=== PATIENT | male | born 1945 | race Caucasian/White ===

== ENCOUNTER 2016-11-02 17:39 | Inpatient (IN) | payer MEDICARE, OTHER ==
--- NOTE | ~2016-11-02 | DS ---
Discharge Summary [facility] [address] [place]. [address] NAME: NORAH LIAO : 45 STATUS : DIS IN PAT#: [id number] AGE: 71 ADM/REG DATE : 11/02/16 MR#: [id number] REPORT SERV DATE: 11/06/16 DICTATED BY: ROYCE LORENZO DATE: 11/05/16 REPORT STATUS : Draft TRANSCRIBED BY: MODL DATE: 11/05/16 ADMISSION DATE: 11/02/2016 DISCHARGE DATE: 11/05/2016 FINAL DIAGNOSES: 1. Acute on chronic respiratory failure. 2. Left lower lobe pneumonia. 3. Chronic obstructive pulmonary disease exacerbation. 4. Hypertension. 5. Prostate cancer. DIAGNOSTIC EXAM: Chest x-ray showing COPD, new infiltrate in the left lung base that is suspicious for pneumonia. HOSPITAL COURSE: Please refer to the H and P done by Dr. Espinoza dated on 11/02/2016. Briefly, this is a 71-year-old male, who comes in for shortness of breath. The patient has a history of COPD and uses 2 L of oxygen only at bedtime. The patient mowed the grass and then afterwards started having chills, shake, shortness of breath and tightness in the chest. The patient went to the emergency room the next day and an x-ray was done, which shows a left lower lobe pneumonia. The patient also came in with a white count of 26. The patient needed oxygen as he was hypoxic on room air, and on discharge, he was saturating at 92% on room air. The patient was started on antibiotics. Sputum cultures were done, and it turned out to be Pseudomonas. Interestingly enough, the patient actually improved without Pseudomonas treatment with improvement of clinical symptoms, and white count coming down from 26 to 8. Nevertheless, we will be discharging the patient on Levaquin which is sensitive to it. The patient expresses wishes to go home. He said that he feels much better and almost back to his baseline so, we will be discharging him with the above diagnosis, and he is going to continue his oxygen at night and inhalers at home. He will be on the following medications; aspirin 81 mg a day, Lipitor 40 mg at bedtime, Lopid 600 mg a day, lisinopril 10 mg a day, Claritin 10 mg at bedtime, Prilosec 20 mg a day, Combivent inhaled 4 times a day as needed, Symbicort 2 puffs twice a day, and he will get a prescription for Levaquin 750 mg p.o. daily for five more days. The patient will follow up with his PCP, Dr. Clinton Duenas in a week's time. This has been explained to the patient, and he agreed and understood the plan. CANDIDA/CONSUELO Royce Lorenzo M.D. / [id number] Discharge Summary [address] [address] NAME: NORAH LIAO : 45 STATUS : DIS IN PAT#: [id number] AGE: 71 ADM/REG DATE : 11/02/16 MR#: [id number] REPORT SERV DATE: 11/06/16 DICTATED BY: ROYCE LORENZO. DATE: 11/05/16 REPORT STATUS : Draft TRANSCRIBED BY: CONSUELO DATE: 11/05/16 CC: Chapin Burrell M.D.
--- NOTE | ~2016-11-02 | HP ---
History And Physical [facility] [id number] [place]. [address] NAME: NORAH LIAO : 45 STATUS : ADM IN PAT#: [id number] AGE: 71 ADM/REG DATE : 11/02/16 MR#: [id number] REPORT SERV DATE: 11/03/16 DICTATED BY: ROYCE ESPINOZA DATE: 11/02/16 REPORT STATUS : Draft TRANSCRIBED BY: MODL DATE: 11/02/16 DATE OF ADMISSION: 11/02/2016 IDENTIFYING DATA: A 71-year-old white male whose PCP is Dr. Clinton Duenas, urologist Dr. Peña. CHIEF COMPLAINT: Shortness of breath and chest tightness. HISTORY OF PRESENT ILLNESS: This history of present illness is obtained by talking with the patient as well as with his grandson and reviewing [facility] and Somewhere, reviewing the current ER chart. The patient has known COPD. He wears oxygen 2 L nasal cannula at bedtime. Yesterday, he mowed the grass of a family member about 2 acres worth, then in the evening had chills and shakes and had increased shortness of breath and tightness in his chest with worsening cough and new sputum that was white. No fever. He states he did get his flu vaccine last fall and also states he is up-to-date on his pneumonia vaccination. He came to the emergency room where he was noted to have a leukocytosis and left lower lobe infiltrate and hypoxia. We were asked to admit him to the hospital. REVIEW OF SYSTEMS: On review of systems, he has some left-sided chest pain that is just sore to touch today. He has chronic nocturia two times per night. He denies sore throat, abdominal pain, nausea, vomiting, diarrhea, dysuria, urinary hesitancy, peripheral edema, rash, headaches, tick bites. He states he has been eating well up until yesterday. He states when he was hospitalized here with a COPD exacerbation in June of this year, he lost about 12 pounds during that illness. He thinks he is gaining that back now. ALLERGIES: ON REVIEW OF SYSTEMS, NO KNOWN DRUG ALLERGIES. PAST MEDICAL HISTORY: He denies any history of diabetes, asthma, myocardial infarction, congestive heart failure, stroke, seizure, biliary tract disease, liver disease, renal disease, thyroid disease. He has a known history of COPD. He has hypertension. He has prostate cancer diagnosed in 2013, just on observation therapy. He has history of hyperlipidemia. He states he had a gastric ulcer at age 17, and he has had some skin cancers. HOME MEDICATIONS: Aspirin 81 mg daily, Lipitor 40 mg at bedtime, Symbicort 160/4.5 two puffs twice a day, Lopid 600 mg daily, Combivent Respimat a puff q.i.d., lisinopril 10 mg daily, Claritin 10 mg daily, and omeprazole 20 mg daily. SURGICAL HISTORY: Prostate biopsy and cataract removal. SOCIAL HISTORY: He used to smoke three to four packs of cigarettes per day but he quit 15 years ago. He states he drinks very rarely and never any substantial amount in his History And Physical [address] [address] NAME: NORAH LIAO : 45 STATUS : ADM IN [facility]#: [id number] AGE: 71 ADM/REG DATE : 11/02/16 MR#: [id number] REPORT SERV DATE: 11/03/16 DICTATED BY: ROYCE ESPINOZA DATE: 11/02/16 REPORT STATUS : Draft TRANSCRIBED BY: CONSUELO DATE: 11/02/16 lifetime. He works with stone, is still active. He walks without assistive device. FAMILY HISTORY: Mom had heart disease and skin cancer. Dad had COPD. Siblings one sister with heart disease. Another sister had cirrhosis. DIAGNOSTIC DATA: EKG done today at 1519 hours shows sinus tachycardia with poor R-wave progression, otherwise, unremarkable and looks like his EKG of 07/25/2016 per my interpretation. Chest x-ray, as a PA and lateral today reveals hyperexpanded lung hardy, flat diaphragm, infiltrate in the left lung base. No other acute abnormalities per my exam. Arterial blood gas done on 28% oxygen, pH 7.40, pCO2 of 40, pO2 of 73, bicarbonate 23.9, sodium 139, potassium 3.8, chloride 103, CO2 is 32, BUN 15, creatinine 0.99, glucose 123, calcium 9.9, magnesium 2.2. Troponin less than 0.02. White count is 26.6, hemoglobin 14.2, platelets 293,000, protime 14.9, INR 1.2, PTT is 37.1. PHYSICAL EXAMINATION: VITAL SIGNS: Temp is 98, pulse 125, respirations 26, blood pressure 120/71, O2 saturation 96% on 2 L. GENERAL: A well-developed male, who appears mildly short of breath, but in no acute distress otherwise. HEENT: Head is atraumatic. Pupils are equal, round, and reactive to light. Extraocular motions are intact. No scleral icterus noted. Ear canals with some wax but otherwise unremarkable. Normal hearing. He has what looks like some actinic keratosis on his external ears. Nose noninflamed externally. Septum midline. Nares patent. Mouth, moist. Good gag. No redness of the throat or gums. He has upper and lower dentures. NECK: Supple. No lymph node or thyroid enlargement. The carotids have good pulses. No bruits. LUNGS: Noted to have very distant breath sounds. Crackles in the left base, mildly increased respiratory effort. HEART: Tachycardic and regular without murmur, gallop, click, or rub. ABDOMEN: Bowel sounds positive. Soft, flat, nondistended, nontender. No masses. No organomegaly. EXTREMITIES: No cyanosis, no clubbing, no edema. No actively inflamed skin or joints. He has thickened dry skin on his palms. NEUROLOGICAL: Alert, oriented, cooperative with grossly normal motor and sensory and cranial nerves 2 through 12. No Babinski. No clonus noted. ASSESSMENT: 1. Community-acquired pneumonia left lower lobe. 2. Acute exacerbation of chronic obstructive pulmonary disease in a gentleman who uses nocturnal oxygen. 3. Leukocytosis related to community-acquired pneumonia left lower lobe. 4. Acute hypoxic respiratory failure. 5. Sepsis criteria. 6. Previous gastric ulcer years ago. 7. Prostate cancer on observation therapy since 2014. History And Physical [address] [address] NAME: NORAH LIAO : 45 STATUS : ADM IN [facility]#: [id number] AGE: 71 ADM/REG DATE : 11/02/16 MR#: [id number] REPORT SERV DATE: 11/03/16 DICTATED BY: ROYCE ESPINOZA DATE: 11/02/16 REPORT STATUS : Draft TRANSCRIBED BY: MODL DATE: 11/02/16 PLAN: 1. Admit to the hospital. 2. Blood cultures. 3. Procalcitonin and urine antigens will be checked. 4. Antibiotics have already been started in the emergency room. We will continue those. 5. Supplement oxygen and continue nebulizers. 6. I do not think he needs steroids yet parenterally. 7. We will follow up his white count. 8. We will follow up his troponins. The grandson updated at bedside at this time. DENIZ/CONSUELO Royce Espinoza M.D. / [id number] CC: Chapin Stewart M.D.
[2016-11-02 16:01] LABS: BASOPHILS 0.1 %; BASOPHILS ABSOLUTE 0.03 10/3/uL (0.0-0.16); EOSINOPHILS 0.2 %; EOSINOPHILS ABSOLUTE 0.05 10/3/uL (0.0-0.53); HEMOGLOBIN 14.2 g/dL (13.6-17.8); IMMATURE GRANULOCYTES 0.3 %; IMMATURE GRANULOCYTES ABSOLUTE 0.07 10/3/uL (0.0-0.11); LYMPHOCYTES 4.9 %; MEAN CORPUS HGB CONC 33.1 g/dL (32.0-36.0); MEAN CORPUSCULAR HEMOGLOB 28.5 pg (26.0-34.0); MEAN CORPUSCULAR VOLUME 86.1 fL (80-100); MEAN PLATELET VOLUME 10.4 fL (9.2-13.0); MONOCYTES 6.2 %; MONOCYTES ABSOLUTE 1.64 10/3/uL (0.21-1.20); NEUTROPHILS 88.3 %; NEUTROPHILS ABSOLUTE 23.53 10/3/uL (2.02-8.40)
[2016-11-02 16:02] LABS: RED CELL COUNT 4.98 10/6/uL (4.7-6.1); WHITE BLOOD CELLS 26.6 10/3/uL (4.5-10.5)
[2016-11-02 16:03] LABS: HEMATOCRIT 42.9 % (40.0-51.0); PLATELET COUNT 293 10/3/uL (150-400)
[2016-11-02 16:07] LABS: MANUAL DIFF NO %
[2016-11-02 16:14] LABS: INTERNATIONAL NORMAL RATI 1.2 UNITS (-); PARTIAL THROMBO TIME 37.1 SEC (22.5-37.2); PROTIME (NOT ORD) 14.9 SEC (12.0-14.5)
[2016-11-02 16:20] LABS: BAND NEUTROPHILS 9 %; ER DIFF TAT 0 Hrs 24 Mins; LYMPHOCYTES 4 %; LYMPHOCYTES ABSOLUTE (CALC) 1.06 10/3/uL (0.67-4.30); MONOCYTES 5 %; MONOCYTES ABSOLUTE (CALC) 1.33 10/3/uL (0.21-1.20); NEUTROPHILS ABSOLUTE (CALC) 24.21 10/3/uL (2.02-8.40); PLATELET ESTIMATE ADQ (ADEQUATE); RBC MORPHOLOGY NORM (NORMAL); SEGMENTED NEUTROPHIL (0) 82 %; TOTAL NUCLEATED CELLS 100
[2016-11-02 16:23] LABS: BUN (BLOOD UREA NITROGEN) 15 MG/DL (6-23); CALCIUM, SERUM 9.9 MG/DL (8.5-10.4); CHEST PAIN PROFILE TAT 0 Hrs 27 Mins; CHLORIDE, SERUM 103 MMOL/L (96-112); CO2 (CARBON DIOXIDE) 32 MMOL/L (24-34); CREATININE 0.99 MG/DL (0.70-1.30); GFR AFRICAN AMERICAN 88 ML/MIN (>=60); GFR NON AFRICAN AMERICAN 76 ML/MIN (>=60); GLUCOSE, SERUM 123 MG/DL (60-99); POTASSIUM, SERUM 3.8 MMOL/L (3.5-5.3); SODIUM, SERUM 139 MMOL/L (135-148); TROPONIN I <0.02 NG/ML (<0.05)
[2016-11-02 16:59] LABS: ALLENS TEST Pos; BE (BASE EXCESS) -0.8 MEQ/L (0 +/- 2.5); CARBOXYHEMOGLOBIN 1.3 % (0-3); DEVICE NC; HCO3 (ACTUAL BICARBONATE) 23.9 MEQ/L (23-27); HEMOBLOGIN CONTENT 13.9 G/DL (14-18); INSTRUMENT SERIAL # 8087; METHEMOGLOBIN 0.3 % (0-3); O2 CONTENT 18.3 VOL% (18-24); OPERATOR ID 32214; PCO2 (CO2 TENSION) 40 MMHG (35-45); PO2 (O2 TENSION) 73 MMHG (79-93); SAMPLE Arterial
[~2016-11-02 17:39] MED LIST: ALEVE220 MG PO; ASAB PO; CEFT2 PO; CLARIT10 PO; COMBIVENT RESPIM4 GM INH; LIPITOR40 PO; LOPID6 PO; P20 PO; PRILO PO; PRIN10 PO; PROAIR HFA INH; SPIRIVA RESPIMAT INH; SYMBICORT 160/41 INH INH; SYMBICORT 80/4.1 INH INH; ZOCOR10 PO
[2016-11-02 21:34] LABS: DIRECT BILIRUBIN 0.1 MG/DL (0.0-0.4); INDIRECT BILIRUBIN(NOT ORDER) 0.4 MG/DL (0.1-0.9); SGOT(AST) 20 U/L (5-40); SGPT(ALT) 26 U/L (5-65); TOTAL BILIRUBIN 0.5 MG/DL (0-1.2); TOTAL PROTEIN 8.2 G/DL (6.0-8.5)
[2016-11-02 21:35] LABS: ALKALINE PHOSPHATASE 120 U/L (45-117)
[2016-11-02 23:49] LABS: BUN (BLOOD UREA NITROGEN) 14 MG/DL (6-23); CALCIUM, SERUM 9.3 MG/DL (8.5-10.4); CHLORIDE, SERUM 102 MMOL/L (96-112); CO2 (CARBON DIOXIDE) 29 MMOL/L (24-34); CREATININE 0.91 MG/DL (0.70-1.30); GFR AFRICAN AMERICAN 98 ML/MIN (>=60); GFR NON AFRICAN AMERICAN 84 ML/MIN (>=60); GLUCOSE, SERUM 116 MG/DL (60-99); POTASSIUM, SERUM 4.2 MMOL/L (3.5-5.3); SODIUM, SERUM 142 MMOL/L (135-148); TROPONIN I <0.02 NG/ML (<0.05)
[2016-11-02 23:52] LABS: ULTRASENSITIVE TSH 0.518 MCIU/ML (0.358-3.740)
[2016-11-03 00:25] LABS: PROCALCITONIN 0.31 ng/mL (<0.5)
[2016-11-03 06:08] LABS: BASOPHILS 0.2 %; BASOPHILS ABSOLUTE 0.03 10/3/uL (0.0-0.16); EOSINOPHILS 0.5 %; EOSINOPHILS ABSOLUTE 0.09 10/3/uL (0.0-0.53); HEMATOCRIT 39.7 % (40.0-51.0); HEMOGLOBIN 12.8 g/dL (13.6-17.8); IMMATURE GRANULOCYTES 0.3 %; IMMATURE GRANULOCYTES ABSOLUTE 0.06 10/3/uL (0.0-0.11); LYMPHOCYTES 7.1 %; LYMPHOCYTES ABSOLUTE 1.35 10/3/uL (0.67-4.30); MEAN CORPUS HGB CONC 32.2 g/dL (32.0-36.0); MEAN CORPUSCULAR HEMOGLOB 28.1 pg (26.0-34.0); MEAN CORPUSCULAR VOLUME 87.3 fL (80-100); MEAN PLATELET VOLUME 10.4 fL (9.2-13.0); MONOCYTES 7.3 %; NEUTROPHILS 84.6 %; NEUTROPHILS ABSOLUTE 16.17 10/3/uL (2.02-8.40); PLATELET COUNT 282 10/3/uL (150-400); RBC DISTRIBUTION WIDTH 12.9 % (12.0-16.0); RED CELL COUNT 4.55 10/6/uL (4.7-6.1); WHITE BLOOD CELLS 19.1 10/3/uL (4.5-10.5)
[2016-11-03 06:11] LABS: MANUAL DIFF NO %
[2016-11-03 06:19] LABS: BUN (BLOOD UREA NITROGEN) 14 MG/DL (6-23); CALCIUM, SERUM 9.1 MG/DL (8.5-10.4); CHLORIDE, SERUM 104 MMOL/L (96-112); CO2 (CARBON DIOXIDE) 27 MMOL/L (24-34); CREATININE 0.84 MG/DL (0.70-1.30); GFR AFRICAN AMERICAN 102 ML/MIN (>=60); GFR NON AFRICAN AMERICAN 88 ML/MIN (>=60); GLUCOSE, SERUM 94 MG/DL (60-99); POTASSIUM, SERUM 4.2 MMOL/L (3.5-5.3); SODIUM, SERUM 141 MMOL/L (135-148)
[2016-11-04 05:31] LABS: BASOPHILS 0.2 %; BASOPHILS ABSOLUTE 0.02 10/3/uL (0.0-0.16); EOSINOPHILS 1.7 %; EOSINOPHILS ABSOLUTE 0.21 10/3/uL (0.0-0.53); HEMATOCRIT 40.1 % (40.0-51.0); HEMOGLOBIN 12.9 g/dL (13.6-17.8); IMMATURE GRANULOCYTES 0.3 %; IMMATURE GRANULOCYTES ABSOLUTE 0.04 10/3/uL (0.0-0.11); LYMPHOCYTES 8.6 %; LYMPHOCYTES ABSOLUTE 1.09 10/3/uL (0.67-4.30); MEAN CORPUS HGB CONC 32.2 g/dL (32.0-36.0); MEAN CORPUSCULAR HEMOGLOB 27.8 pg (26.0-34.0); MEAN CORPUSCULAR VOLUME 86.4 fL (80-100); MEAN PLATELET VOLUME 10.8 fL (9.2-13.0); MONOCYTES ABSOLUTE 1.14 10/3/uL (0.21-1.20); NEUTROPHILS 80.2 %; NEUTROPHILS ABSOLUTE 10.19 10/3/uL (2.02-8.40); PLATELET COUNT 291 10/3/uL (150-400); RBC DISTRIBUTION WIDTH 13.2 % (12.0-16.0); RED CELL COUNT 4.64 10/6/uL (4.7-6.1); WHITE BLOOD CELLS 12.7 10/3/uL (4.5-10.5)
[2016-11-04 05:32] LABS: MANUAL DIFF NO %
[2016-11-05 05:45] LABS: HEMATOCRIT 41.5 % (40.0-51.0); HEMOGLOBIN 13.5 g/dL (13.6-17.8); MEAN CORPUS HGB CONC 32.5 g/dL (32.0-36.0); MEAN CORPUSCULAR HEMOGLOB 28.5 pg (26.0-34.0); MEAN CORPUSCULAR VOLUME 87.7 fL (80-100); MEAN PLATELET VOLUME 11.3 fL (9.2-13.0); PLATELET COUNT 246 10/3/uL (150-400); RBC DISTRIBUTION WIDTH 13.2 % (12.0-16.0); RED CELL COUNT 4.73 10/6/uL (4.7-6.1); WHITE BLOOD CELLS 8.3 10/3/uL (4.5-10.5)
[2016-11-05 06:01] LABS: MANUAL DIFF YES %
[2016-11-05 06:46] LABS: BAND NEUTROPHILS 2 %; EOSINOPHILS 2 %; EOSINOPHILS ABSOLUTE (CALC) 0.17 10/3/uL (0.0-0.53); LYMPHOCYTES 15 %; LYMPHOCYTES ABSOLUTE (CALC) 1.25 10/3/uL (0.67-4.30); MONOCYTES 10 %; MONOCYTES ABSOLUTE (CALC) 0.83 10/3/uL (0.21-1.20); NEUTROPHILS ABSOLUTE (CALC) 6.06 10/3/uL (2.02-8.40); PLATELET ESTIMATE ADQ (ADEQUATE); SEGMENTED NEUTROPHIL (0) 71 %; TOTAL NUCLEATED CELLS 100
[2016-11-05 06:47] LABS: RBC MORPHOLOGY NORM (NORMAL)
[2016-11-05] MEDS ORDERED: LEVAQUIN750 MG PO (09:16)
== END 2016-11-05 11:05 | disposition home or self-care (01) | DRG 189 ==
LOC: ER 17:39 → 2SO 18:19
PROVIDERS: Emergency Medicine; Hospitalist; Internal Medicine
DX: J96.21 Acute and chronic respiratory failure with hypoxia (principal); J18.9 Pneumonia, unspecified organism; Z99.81 Dependence on supplemental oxygen; J44.0 Chronic obstructive pulmonary disease with (acute) lower respiratory infection; C61 Malignant neoplasm of prostate; J44.1 Chronic obstructive pulmonary disease with (acute) exacerbation; K27.7 Chronic peptic ulcer, site unspecified, without hemorrhage or perforation; I10 Essential (primary) hypertension; E78.5 Hyperlipidemia, unspecified; Z85.828 Personal history of other malignant neoplasm of skin; Z98.890 Other specified postprocedural states; Z82.49 Family history of ischemic heart disease and other diseases of the circulatory system; Z82.5 Family history of asthma and other chronic lower respiratory diseases
CPT/HCPCS: 36600; 71020; 80048; 80076; 82805; 83735; 83880; 84145; 84443; 84484; 85025; 85610; 85730; 87040; 87070; 87077; 87186; 87205; 87449; 93005; 94640; 96365; 96375; 99285; A9270-GY; J0456